=== PATIENT | male | born 1955 | race Caucasian/White ===

== ENCOUNTER 2021-01-14 08:31 | Outpatient (CLI) | payer OTHER, SELFPAY ==
--- NOTE | 2021-01-14 11:30 | NEURO_ITS ---
Impression: # Complains of pain and numbness of feet. # Normal nerve conduction study including F-waves and distal latencies. # Normal needle/EMG exam. # Clinical correlation recommended. Nerve Conduction Studies Anti Sensory Summary Table Stim Site NR Peak (ms) P-T Amp (?V) Site1 Site2 Delta-P (ms) Dist (cm) Harshil (m/s) Left Sup Fibular Anti Sensory (Ant Lat Mall) 14 cm 3.4 45.7 14 cm Ant Lat Mall 3.4 16.0 47 Right Sup Fibular Anti Sensory (Ant Lat Mall) 14 cm 3.8 17.1 14 cm Ant Lat Mall 3.8 16.0 42 Left Sural Anti Sensory (Lat Mall) Calf 3.8 30.8 Calf Lat Mall 3.8 16.0 42 Right Sural Anti Sensory (Lat Mall) Calf 4.0 18.6 Calf Lat Mall 4.0 16.0 40 Motor Summary Table Stim Site NR Onset (ms) O-P Amp (mV) Site1 Site2 Delta-0 (ms) Dist (cm) Harshil (m/s) Left Peroneal Motor (Vastus Med) Ankle 5.8 1.9 Popit Ankle 8.6 38.0 44 Popit 14.4 2.2 Right Peroneal Motor (Vastus Med) Ankle 5.2 2.2 Popit Ankle 8.4 36.0 43 Popit 13.6 2.4 Left Tibial Motor (Abd Grant Brev) Ankle 5.1 6.0 Knee Ankle 9.2 41.0 45 Knee 14.3 3.3 Right Tibial Motor (Abd Grant Brev) Ankle 5.5 4.4 Knee Ankle 9.0 40.0 44 Knee 14.5 3.4 F Wave Studies NR F-Lat (ms) L-R F-Lat (ms) Left Peroneal (Mrkrs) (EDB) 53.49 0.00 Right Peroneal (Mrkrs) (EDB) 62.03 8.54 Left Tibial (Mrkrs) (Abd Hallucis) 52.07 0.20 Right Tibial (Mrkrs) (Abd Hallucis) 52.27 0.20 EMG Side Muscle Nerve Root Ins Act Fibs Amp Dur Recrt Comment Right AntTibialis Dp Br Fibular L4-5 Nml Nml Nml Nml Nml Right Gastroc Tibial S1-2 Nml Nml Nml Nml Nml Right Fibularis Long Sup Br Fibular L5-S1 Nml Nml Nml Nml Nml Right Flex Dig Long Tibial L5-S2 Nml Nml Nml Nml Nml Right Ext Dig Brev Dp Br Fibular L5, S1 Nml Nml Nml Nml Nml Left AntTibialis Dp Br Fibular L4-5 Nml Nml Nml Nml Nml Left Gastroc Tibial S1-2 Nml Nml Nml Nml Nml Left Fibularis Long Sup Br Fibular L5-S1 Nml Nml Nml Nml Nml Left Flex Dig Long Tibial L5-S2 Nml Nml Nml Nml Nml Left Ext Dig Brev Dp Br Fibular L5, S1 Nml Nml Nml Nml Nml Right QuadratusFem QuadFemoris L4-5, S1 Nml Nml Nml Nml Nml Left QuadratusFem QuadFemoris L4-5, S1 Nml Nml Nml Nml Nml MTDD
== END 2021-01-14 08:32 | disposition home or self-care (01) ==
PROVIDERS: PCP Family Medicine; Visit Provider Family Medicine
DX: G54.9 Nerve root and plexus disorder, unspecified (principal)
CPT/HCPCS: 95886; 95910

== ENCOUNTER → 2021-02-16 10:37 | Outpatient (CLI) | payer OTHER, SELFPAY ==
--- NOTE | ~2021-02-16 | MR_ITS ---
EXAMINATION: MR lumbar spine wo con DATE: 02/16/2021 11:53 INDICATION: Paresthesias of skin. Low back pain. TECHNIQUE: Magnetic resonance imaging (MRI) of the lumbar spine was performed without intravenous con trast. Sequences included sagittal T2-weighted FSE, sagittal T2-weighted FS FSE, sagittal T1-weighted FSE, and axial T2-weighted FSE. COMPARISON: None FINDINGS: There is 5 degrees levocurvature of lumbar spine. There are chronic bilateral L5 pars defec ts. There is 7 mm anterolisthesis of L5 on S1. There is mild chronic anterior wedging of L1 vertebral body. There is mildly decreased disc height at T12-L1 and L1-L2, moderately decreased disc height at L2-L3, mildly decreased disc height at L3-L4 and L4-L5, and moderately decreased disc height at L5-S 1. Epidural lipomatosis is noted. The distal spinal cord signal intensity is normal. The conus medull daniel is at L1. The following disc levels are specifically discussed: T12-L1: The disc is bulging and has an annular fissure. There is mild bilateral facet joint osteoarth ritis. There is mild bilateral neural foraminal stenosis. There is mild central canal stenosis. L1-L2: The disc is bulging and has an annular fissure. There is mild lateral facet joint osteoarthrit is. There is mild bilateral neural foraminal stenosis. There is mild central canal stenosis. L2-L3: The disc is bulging and has an annular fissure. There is moderate right and mild left facet shelly int osteoarthritis. There is moderate bilateral neural foraminal stenosis. There is moderate central canal stenosis. L3-L4: The disc is bulging and has an annular fissure. There is moderate right and mild left facet shelly int osteoarthritis. There is moderate bilateral neural foraminal stenosis. There is severe central ca nal stenosis. L4-L5: The disc is bulging and has an annular fissure. There is mild bilateral facet joint osteoarthr itis. There is moderate bilateral neural foraminal stenosis. There is moderate central canal stenosis . L5-S1: The disc is bulging and has an annular fissure. There is moderate bilateral facet joint osteoa rthritis. There is mild right and moderate left neural foraminal stenosis. There is mild central carlotta l stenosis. IMPRESSION: 1. Severe lumbar spondylosis. Reviewed, dictated and finalized at location A.
== END ==
PROVIDERS: PCP Family Medicine; Visit Provider Family Medicine
DX: R20.2 Paresthesia of skin (principal); M47.816 Spondylosis without myelopathy or radiculopathy, lumbar region
CPT/HCPCS: 72148

== ENCOUNTER → 2021-02-22 09:05 | Outpatient (CLI) | payer OTHER, SELFPAY ==
--- NOTE | ~2021-02-22 | XR_ITS ---
XR lumbar spine 6V w bending DATE: 02/22/2021 09:23 INDICATION: Paresthesias TECHNIQUE: Standing AP and lateral and coned lateral lumbosacral views. Standing flexion and extensio n lateral views. Bilateral supine and oblique views. COMPARISON: 02/16/2021 MRI lumbar spine 03/29/2005 lumbar spine FINDINGS: There is mild levoscoliosis of the lumbar spine. No fracture or bone destruction is evident. The included lower thoracic and lumbar pedicles are intac t. Bilateral L5 pars interarticularis defects with grade 1 anterolisthesis at L5-S1. There is moderate degenerative disc disease throughout the lumbar and lumbosacral area. No instability on flexion or extension is evident. There is degenerative spurring of the lower thoracic spine. The sacroiliac joints are intact. IMPRESSION: Bilateral L5 pars interarticularis defects with grade 1 anterolisthesis at L5-S1 Moderate multilevel degenerative disc disease Reviewed, dictated and finalized at location A. IMPRESSION: Bilateral L5 pars interarticularis defects with grade 1 anterolisth esis at L5-S1 Moderate multilevel degenerative disc disease
== END ==
PROVIDERS: PCP Family Medicine; Visit Provider Family Medicine
DX: R93.7 Abnormal findings on diagnostic imaging of other parts of musculoskeletal system (principal); M43.17 Spondylolisthesis, lumbosacral region; M51.36 Other intervertebral disc degeneration, lumbar region
CPT/HCPCS: 72114

== ENCOUNTER 2022-02-11 09:19 | Outpatient (CLI) | payer MEDICARE, OTHER, SELFPAY ==
--- NOTE | 2022-02-16 15:26 | WPDHOLTEREM ---
Holter/Event Monitor Holter/Event Monitor Date of procedure: 02/16/22 Holter/Event Procedure: 24 Hr Holter Monitor Diagnosis: Palpitations Indications: Palpitations Image/Tracing Quality: Acceptable Finding: Underlying rhythm is sinus with an average heart rate of 84 beats per minute minimum of 60 beats per minute occurring at 3:12 a.m. and maximum 118 beats per minute occurring at 12:15 p.m.. No symptoms were return in conjunction with this study. Rare rare ventricular ectopy noted in which there were 2 isolated premature ventricular contractions and 1 ventricular couplet. Five isolated premature atrial contractions were noted. No atrial fibrillation, atrial flutter or prolonged pauses were noted. ME interval and QRS duration within normal limits. Conclusion: Underlying rhythm is sinus with rare PVCs and PACs without prolonged pauses, high-grade AV blocks or atrial fibrillation/atrial flutter. No symptoms were returned conjunction with this study.
== END 2022-02-11 09:20 | disposition home or self-care (01) ==
LOC: ANHCARD 09:21
PROVIDERS: PCP Family Medicine; Visit Provider Physician Assistant
DX: R00.2 Palpitations (principal)
CPT/HCPCS: 93225; 93226

== ENCOUNTER 2022-05-23 01:25 | Emergency (ER) | payer MEDICARE, OTHER, SELFPAY ==
--- NOTE | ~2022-05-23 | XR_ITS ---
EXAMINATION: XR chest 1V portable DATE: 05/23/2022 03:16 INDICATION: Flulike symptoms TECHNIQUE: frontal view of the chest was obtained. COMPARISON: Chest radiograph dated 08/18/2017 FINDINGS: Bilateral lung volumes remain small. Persistent linear discoid atelectasis/scarring in the bilateral lower lung zones. The cardiomediastinal silhouette is normal. Visualized bones and soft tissues are u nremarkable. IMPRESSION: 1. Unchanged mild linear discoid atelectasis/scarring in the bilateral lower lung zones. Reviewed, dictated and finalized at location A. SIGN WRITER IMPRESSION: 1. Unchanged mild linear discoid atelectasis/scarring in the bilateral lower chauncey ng zones.
--- NOTE | ~2022-05-23 | CT_ITS ---
EXAMINATION: CT abdomen pelvis w con DATE: 05/23/2022 06:29 INDICATION: Mid abdominal pain, nausea, vomiting and diarrhea. TECHNIQUE: Computed tomography (CT) of the abdomen and pelvis was performed with 100 mL Omnipaque-350 intravenous contrast. Automated exposure control and iterative reconstruction technique were employe d. The dose-length product was 816.59 mGy-cm. COMPARISON: 06/19/2016 FINDINGS: Discoid atelectasis in the bilateral lower lungs. Heart size is normal. Atherosclerotic coronary nicole ry calcifications. No pericardial or pleural effusion. Diffuse hepatic steatosis with focal sparing a long the gallbladder fossa. Unchanged focal mild wall thickening with decreased attenuation at the ti p at the gallbladder fundus consistent with focal adenomyomatosis. Spleen, pancreas, bilateral adrena l glands and kidneys are normal. Small to moderate amount of fluid scattered throughout the colon con sistent with diarrhea. No abnormal bowel wall thickening or obstruction. Normal appendix. Bladder is normal. No free intraperitoneal gas or fluid. No pathologically enlarged abdominal or pelvic lymphade nopathy. Mild to moderate thoracic and lumbar spondylosis. L5 spondylolysis with bilateral pars intra -articular is defects and 7 mm anterolisthesis L5 on S1. IMPRESSION: 1. Fluid scattered throughout the otherwise unremarkable colon consistent with nonspecific diarrhea. Correlate clinically for possible enteritis. Reviewed, dictated and finalized at location A. S DRIVER HELPER
[2022-05-23 01:25] VITALS: BP 136/82; PULSE 98; RESP 18; TEMP 37; O2SAT 97
[2022-05-23 02:07] LABS: Basophils Percent Auto 0.2 % (0.2-1.2); Eosinophils Percent Auto 0.2 % (0-4.4); Hematocrit 47.1 % (42.0-52.0); Immature Granulocyte Absolute 0.06 K/mm3 (0.00-0.031); Immature Granulocyte Percent A 0.3 % (0-0.5); Lymphocytes Absolute Auto 0.46 K/mm3 (0.9-3.2); Lymphocytes Percent Auto 2.5 % (18.3-44.2); Mean Corpuscular Hemoglobin 31.9 pg (26-34); Mean Corpuscular Volume 93.8 fl (80-100); Mean Platelet Volume 9.8 fl (7.4-10.4); Monocytes Absolute Auto 0.8 K/mm3 (0.1-0.6); Monocytes Percent Auto 4.2 % (2.6-8.5); Neutrophils Absolute Auto 16.8 K/mm3 (1.3-6.7); Neutrophils Percent Auto 92.6 % (45.5-73.1); Platelet Count Result 148 k/mm3 (150-375); Red Blood Count 5.02 M/mm3 (4.6-6.20); Red Cell Distribution Width 12.8 % (11.5-14.5); White Blood Count 18.2 K/mm3 (4.5-10.0)
[2022-05-23 03:05] LABS: Alanine Aminotransferase 83 U/L (6-50); Albumin Level 5.1 g/dL (3.5-5.1); Alkaline Phosphatase 105 U/L (38-126); Anion Gap 14 mmol/L (8-16); Aspartate Amino Transferase 68 U/L (17-59); Bilirubin,Total 0.9 mg/dL (0.2-1.3); Blood Urea Nitrogen 22 mg/dL (9-20); Calcium 9.5 mg/dL (8.4-10.2); Carbon Dioxide 25 mmol/L (22-30); Chloride 106 mmol/L (98-107); Estimated CRCL calculation 276 ml/min; Estimated Glomerular Filt Rate 55; Glucose 120 mg/dL (65-110); Lipase 33 U/L (23-300); Potassium 4.8 mmol/L (3.4-5.0); Sodium 145 mmol/L (137-145)
--- NOTE | 2022-05-23 03:12 | ED.GENADULT ---
HPI - General Adult General Chief complaint: Nausea/Vomiting/Diarrhea Stated complaint: vomiting diarrhea Time Seen by Provider: 05/23/22 01:46 History of Present Illness HPI narrative: This is a 67-year-old male presenting ED with chief complaint of nausea vomiting diarrhea. Patient's symptoms started at 9:30 p.m. today. Spent 3 hours with almost continuous nausea vomiting diarrhea. He then called EMS who brought him to the hospital. He received Zofran EN route which improved his symptoms. He has had some chills but no fevers. He denies chest pain, difficulty breathing or abdominal pain. He denies urinary symptoms. He has been vaccinated against flu and COVID. Related Data Home Medications Medication Instructions Recorded Confirmed finasteride 5 mg tablet 5 mg PO DAILY 05/24/19 02/04/22 lycopene 10 mg capsule 20 mg PO DAILY 05/24/19 02/04/22 magnesium 250 mg tablet 500 mg PO DAILY 05/24/19 02/04/22 multivitamin 1 tablet PO DAILY 05/24/19 02/04/22 Allergies Allergy/AdvReac Type Severity Reaction Status Date / Time mold Allergy Unknown Sneezing Verified 05/23/22 06:11 pollen extracts Allergy Unknown Sneezing Verified 05/23/22 06:11 Review of Systems Review of Systems: CONSTITUTIONAL: Denies night sweats. EYES: No eye pain ENT: Denies rhinorrhea CARDIOVASCULAR: Denies palpitations RESPIRATORY: Denies hemoptysis GASTROINTESTINAL: Denies hematemesis GENITOURINARY: Denies hematuria. SKIN: Denies rash MUSCULOSKELETAL: Denies myalgia. NEUROLOGIC: Denies weakness. PSYCHIATRIC: Denies delusions PMFSH Past Medical History Medical History Cancer screening Encounter for immunization (03/28/18) Esophageal reflux Irritable bowel syndrome without diarrhea Peripheral arterial disease Surgical History Surgical History H/O arthroscopy of knee (~07/17/76) H/O hernia repair (08/17/05) H/O vasectomy Family History Family History Grandparent Diabetes mellitus Father Hypertension, Onset Age: 79 Family history of elevated blood lipids, Onset Age: 79 Carcinoma of colon, Onset Age: 79 Family history of lung cancer, Onset Age: 79 Mother Family history of malignant neoplasm of breast in first degree relative, Onset Age: 68 Social History Social History Smoking status: Never smoker Second hand tobacco smoke exposure: No Alcohol intake: current Drinks per week: 16 Alcohol use details: Drinks beer Additional living arrangements comments: Gender identity (if verbalized by the patient): Male Exam Narrative: APPEARANCE: No apparent distress. Patient is polite and friendly during the interview Head: atraumatic. EYES: EOMI, NOSE: Atraumatic NECK: Trachea midline RESPIRATORY: No increased rate of breathing. ctab. no rhonchi or wheezing. CARDIOVASCULAR: RRR, no peripheral edema ABDOMINAL: Non-distended , soft, no guarding or rebound MUSCULOSKELETAl: No obvious deformities NEURO: Alert. Moving 4/4 extremities SKIN:: Warm, dry. Normal color PSYCHIATRIC: Normal affect Course Vital Signs Vital signs: Vital Signs Temperature 98.6 F 05/23/22 01:25 Pulse Rate 98 05/23/22 01:25 Respiratory Rate 18 05/23/22 01:25 Blood Pressure 136/82 05/23/22 01:25 Pulse Oximetry 97 05/23/22 01:25 Oxygen Delivery Room Air 05/23/22 01:25 Temperature 98.7 F 05/23/22 05:11 Pulse Rate 112 H 05/23/22 06:10 Respiratory Rate 17 05/23/22 06:10 Blood Pressure 160/89 H 05/23/22 06:10 Pulse Oximetry 96 05/23/22 06:10 Oxygen Delivery Room Air 05/23/22 01:25 Medical Decision Making [facility] Narrative Medical decision making narrative: This is a 67-year-old male presenting to the ED with approximately 4 hours of nausea vomiting diarrhea.
[2022-05-23] MEDS: ONDANSETRON INJ 4 MG/2 ML VIAL IV PUSH (03:19)
[2022-05-23] MEDS: KETOROLAC 15 MG/ML VIAL (*BKC) IV PUSH (03:20)
[2022-05-23] MEDS: SODIUM CHLORIDE 0.9% IV 2,000 ML 999 ML IV CONT (03:21)
[2022-05-23 03:22] VITALS: BP 157/76; PULSE 96; RESP 16; O2SAT 99
[2022-05-23 04:08] LABS: Influenza A QL RT-PCR Negative (Negative); Influenza B QL RT-PCR Negative (Negative); SARS-CoV-2 RNA PCR Negative
[2022-05-23 04:17] LABS: Appearance Urine Clear (Clear); Bilirubin Urine Negative (Negative); Blood Urine Negative (Negative); Color Urine Yellow (Yellow); Glucose Urine UA Negative (Negative); Ketones Urine Trace mg/dL (Negative); Leukocyte Esterase Ur Negative LEU/UL (Negative); Nitrate Urine Negative (Negative); Protein Urine Trace mg/dL (Negative); Specific Grav Ur 1.025 (1.001-1.035); Urobilinogen Urine 0.2 mg/dL (<2.0); pH Urine 5.5 (5.0-9.0)
[2022-05-23 04:36] LABS: Bacteria Urine Trace /hpf; Mucus Urine Rare /lpf; RBC Urine 0-2 /hpf (0-2); WBC Urine 0-3 /hpf
[2022-05-23 04:40] LABS: Add Urine Microscopic? YES
[2022-05-23 04:45] VITALS: BP 125/68; PULSE 100; RESP 20; O2SAT 97
[2022-05-23 05:11] VITALS: BP 129/61; PULSE 102; RESP 28; TEMP 37.1; O2SAT 98
[2022-05-23 06:10] VITALS: BP 160/89; PULSE 112; RESP 17; O2SAT 96
[2022-05-23] MEDS: FAMOTIDINE 20 MG/2 ML VIAL IV PUSH (06:10)
[2022-05-23] MEDS: HYDROmorphone HCL INJ (*CRX) 1 MG/ML SYR 0.5 MG IV PUSH (06:10)
[2022-05-23] MEDS: PROCHLORPERAZINE EDISYLATE 10 MG/2 ML VIAL IV PUSH (06:11)
--- NOTE | 2022-05-23 06:11 | PC.NURSE ---
Pt to CT scan via stretcher at this time.
[2022-05-23 07:37] VITALS: BP 108/77; PULSE 100; RESP 20; O2SAT 99
== END 2022-05-23 07:38 | disposition home or self-care (01) ==
PROVIDERS: Emergency Provider Emergency Medicine; PCP Emergency Medicine
DX: K52.9 Noninfective gastroenteritis and colitis, unspecified (principal); Z20.822 Contact with and (suspected) exposure to COVID-19; K58.9 Irritable bowel syndrome, unspecified; K21.9 Gastro-esophageal reflux disease without esophagitis; I73.9 Peripheral vascular disease, unspecified
CPT/HCPCS: 36415; 71045; 74177; 80053; 81001; 83690; 85025; 87502; 96361; 96365; 96375; 99284; J0131; J0780; J1170; J1885; J2405; J7030; Q9967; U0003; U0005

== ENCOUNTER 2024-11-13 00:19 | Day surgery (SDC) | payer MEDICARE, SELFPAY ==
[2024-10-29 15:06] VITALS: BMI 31.4
[2024-11-13 08:11] VITALS: BP 148/79; PULSE 111; RESP 18; TEMP 36.4; O2SAT 97; BMI 31.6
[2024-11-13] MEDS: LACTATED RINGERS 1,000 ML 150 ML IV CONT (08:13)
[2024-11-13 08:31] LABS: Glucose Point of Care 121 mg/dl (65-105)
--- NOTE | 2024-11-13 09:01 | P.PNAN_ITS ---
Anes - Initial Pre Proc Eval Procedure: Operation Date: 11/13/24 09:00 Proposed Procedures p Screening Colonoscopy - Emanuel Caal MD Date/Time: 11/13/24 09:01 Surgeon: Emanuel Caal MD Pre Op Diagnosis: screening colon Patient Data Age: 69 Gender: M Height: 1.68 m Weight: 89.1 kg Last Vital Signs Temp 97.5 F L 11/13/24 08:11 Pulse 111 H 11/13/24 08:11 Resp 18 11/13/24 08:11 BP 148/79 H 11/13/24 08:11 Pulse Ox 97 11/13/24 08:11 O2 Del Method Room Air 11/13/24 08:11 Allergies Allergy/AdvReac Type Severity Reaction Status Date / Time mold Allergy Unknown Sneezing Verified 11/13/24 08:09 pollen extracts Allergy Unknown Sneezing Verified 11/13/24 08:09 Home Medications ?Medication ?Instructions ?Recorded ?Confirmed ?Type diclofenac sodium 1 % topical gel 2 gm topical QID #100 grams 05/24/19 11/13/24 Rx finasteride 5 mg tablet 5 mg PO DAILY 05/24/19 11/13/24 History lycopene 10 mg capsule 20 mg PO DAILY 05/24/19 11/13/24 History magnesium 250 mg tablet 500 mg PO DAILY 05/24/19 11/13/24 History multivitamin 1 tablet PO DAILY 05/24/19 11/13/24 History mecobalamin (vitamin B12) 1,000 1,000 mcg PO DAILY 02/28/24 11/13/24 History mcg chewable tablet omega-3 acid ethyl esters 1 gram 1 cap PO TID 02/28/24 11/13/24 History capsule fluticasone propionate 50 See Rx Instructions .Route 05/21/24 11/13/24 Rx mcg/actuation nasal .COMPLEX #48 mL spray,suspension olmesartan 20 mg tablet See Rx Instructions .Route 05/21/24 11/13/24 Rx .COMPLEX #90 tabs allopurinol 100 mg tablet 100 mg PO DAILY #90 tabs 05/31/24 11/13/24 Rx atorvastatin 40 mg tablet 40 mg PO QHS #90 tabs 05/31/24 11/13/24 Rx pantoprazole 40 mg tablet,delayed 40 mg PO BID #180 tabs 05/31/24 11/13/24 Rx release metformin 500 mg tablet,extended See Rx Instructions .Route 10/09/24 11/13/24 Rx release 24 hr .COMPLEX #90 tabs amitriptyline 25 mg tablet See Rx Instructions .Route 10/24/24 11/13/24 Rx .COMPLEX #90 tabs Laboratory Tests 11/13/24 08:26 POC Capillary Glucose 121 H mg/dl (65-105) Patient hx anesthesia problems: none Family hx anesthesia problems: none Results Review: All pre-operative results and documents have been reviewed as part of the pre- operative evaluation. [facility] Past Medical History Medical History (Updated 10/02/24 @ 12:26 by Avril Mcneil APRN) Atypical nevus of face Verruca vulgaris Actinic keratosis Acute bronchospasm due to viral infection Screening for prostate cancer Colon cancer screening Laryngitis Sinusitis Peripheral arterial disease Irritable bowel syndrome without diarrhea Esophageal reflux Encounter for immunization (03/28/18) Cancer screening Surgical History Surgical History H/O vasectomy H/O arthroscopy of knee (~07/17/76) H/O hernia repair (08/17/05) Family History Family History Grandparent Diabetes mellitus Father Hypertension, Onset Age: 79 Family history of elevated blood lipids, Onset Age: 79 Carcinoma of colon, Onset Age: 79 Family history of lung cancer, Onset Age: 79 Mother Family history of malignant neoplasm of breast in first degree relative, Onset Age: 68 Social History Social History Smoking status: Never smoker Second hand tobacco smoke exposure: No Alcohol intake: current Drinks per week: 16 Alcohol use details: Drinks beer Lack of Transportation: No Lack of Food: Never True Current Housing: I Have Housing Concerned About Future Housing: No Difficulty Paying Gas/Electric Bills: No Difficulty Paying for Meds: No Currently Unemployed: No Education: Bachelor's Degree Difficulty w/ Childcare or Family Care: No Living arrangements: with family Additional living arrangements comments: Occupation/Education: retired Gender identity (if verbalized by the patient): Male Anes - Eval Final PreProcedure Day of Procedure 11/13/24 09:01 Patient weight: obese Heart: regular rate and rhythm Lungs: clear to auscultation Airway: Mallampati scale class II Neurological: alert and oriented Last oral intake: >/= 8 hours ASA classification: III Emergent: no Anesthetic plan: proceed Anesthesia type and monitoring: general GIVS and standard monitoring Results Review: All pre-operative results and documents have been reviewed as part of the pre- operative evaluation. Informed Consent: The patient's anesthetic plan and its attendant risks and benefits were discussed with the patient/family/POA. Questions were solicited and answers provided to the satisfaction of the patient/family/POA.
--- NOTE | 2024-11-13 09:04 | PM.IMHP ---
H&P: HPI History of Present Illness Date/Time: 11/13/24 09:04 Chief Complaint: Family history of colorectal Cancer Narrative: This patient has family history of colorectal cancer. his father had colorectal cancer at age 75. Review of Systems Review of Systems: All systems reviewed & are unremarkable except as noted in HPI and below PMFSH Past Medical History Medical History (Updated 11/13/24 @ 09:05 by Emanuel Caal MD) Atypical nevus of face Verruca vulgaris Actinic keratosis Acute bronchospasm due to viral infection Screening for prostate cancer Colon cancer screening Laryngitis Sinusitis Peripheral arterial disease Irritable bowel syndrome without diarrhea Esophageal reflux Encounter for immunization (03/28/18) Cancer screening Surgical History Surgical History H/O vasectomy H/O arthroscopy of knee (~07/17/76) H/O hernia repair (08/17/05) Family History Family History Grandparent Diabetes mellitus Father Hypertension, Onset Age: 79 Family history of elevated blood lipids, Onset Age: 79 Carcinoma of colon, Onset Age: 79 Family history of lung cancer, Onset Age: 79 Mother Family history of malignant neoplasm of breast in first degree relative, Onset Age: 68 Social History Social History Smoking status: Never smoker Second hand tobacco smoke exposure: No Alcohol intake: current Drinks per week: 16 Alcohol use details: Drinks beer Lack of Transportation: No Lack of Food: Never True Current Housing: I Have Housing Concerned About Future Housing: No Difficulty Paying Gas/Electric Bills: No Difficulty Paying for Meds: No Currently Unemployed: No Education: Bachelor's Degree Difficulty w/ Childcare or Family Care: No Living arrangements: with family Additional living arrangements comments: Occupation/Education: retired Gender identity (if verbalized by the patient): Male Meds Home Medications and Allergies Home Medications ?Medication ?Instructions ?Recorded ?Confirmed ?Type diclofenac sodium 1 % topical gel 2 gm topical QID #100 grams 05/24/19 11/13/24 Rx finasteride 5 mg tablet 5 mg PO DAILY 05/24/19 11/13/24 History lycopene 10 mg capsule 20 mg PO DAILY 05/24/19 11/13/24 History magnesium 250 mg tablet 500 mg PO DAILY 05/24/19 11/13/24 History multivitamin 1 tablet PO DAILY 05/24/19 11/13/24 History mecobalamin (vitamin B12) 1,000 1,000 mcg PO DAILY 02/28/24 11/13/24 History mcg chewable tablet omega-3 acid ethyl esters 1 gram 1 cap PO TID 02/28/24 11/13/24 History capsule fluticasone propionate 50 See Rx Instructions .Route 05/21/24 11/13/24 Rx mcg/actuation nasal .COMPLEX #48 mL spray,suspension olmesartan 20 mg tablet See Rx Instructions .Route 05/21/24 11/13/24 Rx .COMPLEX #90 tabs allopurinol 100 mg tablet 100 mg PO DAILY #90 tabs 05/31/24 11/13/24 Rx atorvastatin 40 mg tablet 40 mg PO QHS #90 tabs 05/31/24 11/13/24 Rx pantoprazole 40 mg tablet,delayed 40 mg PO BID #180 tabs 05/31/24 11/13/24 Rx release metformin 500 mg tablet,extended See Rx Instructions .Route 10/09/24 11/13/24 Rx release 24 hr .COMPLEX #90 tabs amitriptyline 25 mg tablet See Rx Instructions .Route 10/24/24 11/13/24 Rx .COMPLEX #90 tabs Allergies Allergy/AdvReac Type Severity Reaction Status Date / Time mold Allergy Unknown Sneezing Verified 11/13/24 08:09 pollen extracts Allergy Unknown Sneezing Verified 11/13/24 08:09 Vital Signs Vital Signs - 24 hr 11/13/24 08:11 Temperature 97.5 F L Pulse Rate 111 H Respiratory Rate 18 Blood Pressure 148/79 H Pulse Oximetry 97 Oxygen Delivery Room Air Exam Const: General: cooperative and healthy appearing Resp: Effort & Inspection: normal respiratory effort and able to speak in complete sentences Auscultation: clear to auscultation bilaterally Cardio: Rate: regular rate Rhythm: regular rhythm GI: Inspection: normal to inspection GI Palp: No No hepatosplenomegaly present Auscultation: normal bowel sounds Rectal Exam: deferred Skin: General skin exam: normal color Psych: Appearance: grossly normal Mental Status: mental status grossly normal Assessment and Plan Assessment and plan (1) Family history of colon cancer: Code(s): Z80.0 - Family history of malignant neoplasm of digestive organs Status: Acute Assessment and Plan: The patient is deemed a good candidate for the procedure. Consent signed. Will proceed.
[2024-11-13 09:26] VITALS: BP 117/74; PULSE 86; RESP 17; O2SAT 96
[2024-11-13 09:36] VITALS: BP 103/67; PULSE 88; RESP 17; O2SAT 95
[2024-11-13 09:46] VITALS: BP 150/81; PULSE 76; RESP 25; O2SAT 96
== END 2024-11-13 09:53 | disposition home or self-care (01) ==
PROVIDERS: PCP Nurse Practitioner Family; Referring Provider Family Medicine; Visit Provider Internal Medicine Gastroenterology
PROC: 0DJD8ZZ Inspection of Lower Intestinal Tract, Via Natural or Artificial Opening Endoscopic (ICD-10-PCS; CPT 45378; principal; 2024-11-13 09:00)
DX: Z12.11 Encounter for screening for malignant neoplasm of colon (principal); K64.8 Other hemorrhoids; K58.9 Irritable bowel syndrome, unspecified; I73.9 Peripheral vascular disease, unspecified; L57.0 Actinic keratosis; E66.9 Obesity, unspecified; Z68.31 Body mass index [BMI] 31.0-31.9, adult; Z79.84 Long term (current) use of oral hypoglycemic drugs; Z98.890 Other specified postprocedural states; Z87.19 Personal history of other diseases of the digestive system; Z80.0 Family history of malignant neoplasm of digestive organs; Z80.3 Family history of malignant neoplasm of breast; Z80.1 Family history of malignant neoplasm of trachea, bronchus and lung
CPT/HCPCS: G0105; 82948; J2704; J7120

== ENCOUNTER 2025-06-21 07:16 | Outpatient (CLI) | payer MEDICARE, SELFPAY ==
--- NOTE | ~2025-06-21 | US_ITS ---
EXAMINATION: US abdomen limited DATE: 06/21/2025 08:04 INDICATION: Abnormal test TECHNIQUE: Multiple grayscale and Doppler ultrasound images of the abdomen were obtained. COMPARISON: May 12, 2016 FINDINGS: The liver is increased in echotexture throughout. 2.5 cm hypoechoic area in the liver adjacent to the gallbladder versus gallbladder wall. No ductal dilatation seen. Mild gallbladder wall thickening of 3.9 mm with possible adenomyomatosis. Common bile duct: 2.7 mm partially visualized. The pancreas is poorly visualized. No free fluid seen. The right kidney appears normal. IMPRESSION: 1. At least moderately severe diffuse fatty liver appearing changes. 2.5 cm mass possibly present in the gallbladder fossa region. Correlate with follow-up abdominal MRI or dynamic phase contrast enhanced liver CT. 2. There is limited visualization of the pancreas. 3. Gallbladder wall changes possibly representing adenomyomatosis. Reviewed, dictated and finalized at location A. RACT MODELER IMPRESSION: 1. At least moderately severe diffuse fatty liver appearing changes. 2.5 cm mas s possibly present in the gallbladder fossa region. Correlate with follow-up ab dominal MRI or dynamic phase contrast enhanced liver CT. 2. There is limited visualization of the pancreas. 3. Gallbladder wall changes possibly representing adenomyomatosis.
== END 2025-06-21 07:17 | disposition home or self-care (01) ==
PROVIDERS: PCP Nurse Practitioner Family; Visit Provider Nurse Practitioner Family
DX: K76.0 Fatty (change of) liver, not elsewhere classified (principal); R74.8 Abnormal levels of other serum enzymes; R79.89 Other specified abnormal findings of blood chemistry
CPT/HCPCS: 76705

== ENCOUNTER 2025-07-02 15:50 | Emergency (ER) | payer MEDICARE, SELFPAY ==
[2025-07-02 16:09] VITALS: BP 165/85; PULSE 90; RESP 16; TEMP 36.9; O2SAT 98
--- NOTE | 2025-07-02 16:47 | PC.NURSE ---
Pt states he is leaving, exits ED in NAD, reports feels better.
== END 2025-07-02 18:42 | disposition left against medical advice (07) ==
PROVIDERS: PCP Nurse Practitioner Family
DX: R10.11 Right upper quadrant pain (principal)
CPT/HCPCS: 99199